=== PATIENT | female | born 1975 | race Caucasian/White ===

== ENCOUNTER 2023-04-13 19:43 | Emergency (ER) | payer SELFPAY ==
[~2023-04-13] VITALS: Ht 157.5 cm; Wt 79.8 kg
[2023-04-13 19:54] VITALS: BP 102/60; PULSE 90; RESP 18; TEMP 97.6; O2SAT 99
[2023-04-13] MEDS ORDERED: ONDANSETRON 4 MG/2 ML VIAL IVP ONE (20:15)
[2023-04-13] MEDS ORDERED: MORPHINE SULFATE 4 MG/ML SYR IVP ONE (20:15)
[2023-04-13 20:50] VITALS: BP 133/67; PULSE 90; RESP 18; TEMP 98.1; O2SAT 99
[2023-04-13 20:53] LABS: BASOPHILS # (AUTO) 0.1 K/uL (0.00-0.22); BASOPHILS % (AUTO) 0.7 % (0.0-2.0); EOSINOPHILS # (AUTO) 0.1 K/uL (0-0.4); HEMATOCRIT 41.6 % (36-48); HEMOGLOBIN 14.3 g/dL (12.0-16.0); LYMPHOCYTES # (AUTO) 2.6 K/uL (2.5-16.5); LYMPHOCYTES % (AUTO) 23.6 % (20.5-51.1); MEAN CORPUSCULAR HEMOGLOBIN 30 pg (27-31); MEAN CORPUSCULAR HGB CONC 34 g/dL (33-37); MEAN CORPUSCULAR VOLUME 87.5 fL (80-94); MONOCYTES # (AUTO) 0.8 K/uL (0.8-1.0); MONOCYTES % (AUTO) 7.5 % (1.7-9.3); NEUTROPHILS # (AUTO) 7.5 K/uL (1.8-7.7); NEUTROPHILS % (AUTO) 67.2 % (42.2-75.2); PLATELET COUNT (AUTO) 285 K/uL (140-450); RED BLOOD CELL COUNT(AUTO) 4.75 MIL/uL (4.20-5.40); RED CELL DISTRIBUTION WIDTH 13.2 % (11.6-13.7); WHITE BLOOD COUNT (AUTO) 11.1 K/uL (4.8-10.8)
[2023-04-13] MEDS ORDERED: NACL 0.9% 1,000 ML IV ONE (21:00)
[2023-04-13 21:19] LABS: CARBON DIOXIDE 25.2 mmol/L (21-32); CREATININE 0.9 mg/dL (0.6-1.3); POTASSIUM 3.2 mmol/L (3.5-5.1)
[2023-04-13 21:22] LABS: ALBUMIN 3.4 g/dL (3.4-5.0); BILIRUBIN,DIRECT 0.2 mg/dL (0.0-0.3); TOTAL BILIRUBIN 0.7 mg/dL (0.0-1.0); TOTAL PROTEIN, SERUM 7.9 g/dL (6.4-8.2)
[2023-04-13 22:14] LABS: APPEARANCE,URINE CLEAR (CLEAR); BILIRUBIN,URINE NEGATIVE (NEGATIVE); BLOOD, URINE NEGATIVE (NEGATIVE); COLOR,URINE YELLOW (YELLOW); LEUKOCYTE ESTERASE ,URINE NEGATIVE (NEGATIVE); NITRITE, URINE NEGATIVE (NEGATIVE); PH,URINE 7.5 (5.0-9.0); PROTEIN,URINE NEGATIVE (NEGATIVE); UGLUCOSE NEGATIVE (NEGATIVE); UROBILINOGEN,URINE 0.2 EU/dL (0.2 - 1)
[2023-04-13] MEDS ORDERED: ACET-8905 PO (22:46)
[2023-04-13] MEDS ORDERED: IBUP-2218 PO (22:46)
== END 2023-04-13 22:50 | disposition home or self-care (01) ==
LOC: MED 19:43
DX: K80.20 Calculus of gallbladder without cholecystitis without obstruction (principal); Z79.899 Other long term (current) drug therapy
CPT/HCPCS: 36415; 74177; 76705; 80048; 80076; 81003; 81025; 83690; 85025; 96361; 96374; 96375; 99285; J2270; J2405; J7030; Q9967

== ENCOUNTER 2023-10-30 16:18 | Emergency (ER) | payer SELFPAY ==
[~2023-10-30] VITALS: Ht 160 cm; Wt 81.6 kg
[~2023-10-30 16:18] MED LIST: ACET-8905 PO; IBUP-2218 PO
[2023-10-30 17:31] VITALS: BP 104/54; PULSE 90; RESP 20; TEMP 98.7; O2SAT 99
[2023-10-30] MEDS ORDERED: IBUP-2213 PO (19:40)
[2023-10-30] MEDS: KETOROLAC 30 MG/ML VIAL IM ONE (19:42)
== END 2023-10-30 20:00 | disposition home or self-care (01) ==
LOC: MED 16:18
DX: K80.50 Calculus of bile duct without cholangitis or cholecystitis without obstruction (principal); Z79.899 Other long term (current) drug therapy
CPT/HCPCS: 96372; 99283; J1885